=== PATIENT | female | born 1945 | race Caucasian/White ===

== ENCOUNTER 2023-06-03 13:21 | Emergency (ER) | payer MEDICARE ==
[2023-06-03 13:53] VITALS: TEMP 97
[2023-06-03] MEDS ORDERED: Sodium Chloride 0.9% 1000 ML 1,000 ML ONE ×2 (14:22→15:39)
[2023-06-03 14:24] LABS: Absolute Neutrophil Ct (ANC) 10.75 x10^3/uL (1.4-6.9); BASOPHIL % 0.2 % (0.0-0.4); Basophil (Absolute #) 0.02 x10^3/uL (0-0.4); Eosinophil % 0.5 % (0.00-5.0); Eosinophil (Absolute #) 0.06 x10^3/uL (0-0.5); Hematocrit 47.3 % (35-47); Hemoglobin 15.7 g/dL (12.0-16.0); IMMATURE GRAN # 0.04 x10^3u/L (0.00-0.03); IMMATURE GRAN % 0.3 % (0.00-0.4); Lymphocyte (Absolute #) 0.29 x10^3/uL (1.0-4.6); Lymphocytes % 2.5 % (24.0-44.0); Mean Cell Volume 92.7 fL (78-100); Mean Corpuscular Hemoglobin 30.8 pg (26-32); Mean Corpuscular Hgb Concent. 33.2 g/dL (32-36); Mean Platelet Volume 11.5 fL (7.5-11.0); Monocyte (Absolute #) 0.45 x10^3/uL (0.0-1.3); Monocytes % 3.9 % (0.0-12.0); Neutrophil % 92.6 % (36.0-66.0); Platelet Count 269 x10^3/uL (150-450); Red Cell Distribution Width 11.9 % (11.5-14.0); White Blood Count 11.6 x10^3/uL (4.0-10.5)
[2023-06-03] MEDS: Sodium Chloride 0.9% 1000 ML 1,000 ML IV STA ×2 (14:28→15:39)
[2023-06-03 14:32] LABS: Slide Review 1 YES
[2023-06-03] MEDS ORDERED: Zofran 4 MG/2 ML VIAL ONE (14:33)
[2023-06-03] MEDS: Zofran 4 MG/2 ML VIAL IV ONE (14:36)
[2023-06-03 15:15] LABS: ALBUMIN 3.6 g/dL (3.5-5.0); ALKALINE PHOSPHATASE 92 U/L (38-126); AMYLASE 71 U/L (30-110); ANION GAP 12.9 MEQ/L (5-15); BLOOD UREA NITROGEN 25 mg/dL (7-17); CHLORIDE 108 mmol/L (98-107); Calcium 9.3 mg/dL (8.4-10.2); Carbon Dioxide 21 mmol/L (22-30); Creatinine 1 0.74 mg/dL (0.52-1.04); EST GLOMERULAR FILTRATION RATE 81.7 ML/MIN; Glucose 134 mg/dL (74-106); LIPASE 62 U/L (23-300); Potassium 4.1 mmol/L (3.5-5.1); SGOT/AST 33 U/L (14-36); SGPT/ALT 20 U/L (0-35); SODIUM 137 mmol/L (135-145); TROPONIN < 0.012 ng/mL (0.000-0.033); Total Protein 6.3 g/dL (6.3-8.2)
[2023-06-03 15:43] VITALS: O2SAT 99
--- NOTE | 2023-06-03 16:24 | ERPHSYRPT ---
- History of Present Illness Time Seen by Provider: 06/03/23 13:55 Historian: patient Exam Limitations: no limitations Patient Subjective Stated Complaint: pt here for weakness that started this morning and pain to epigartic area she vomited a couple times and states the p ain feels better. no fever or cough, Triage Nursing Assessment: pt alert, and oreinted, arrived per wc, resp easy, skin w/d/p, no edema noted,moves all ext well, assist on one to get from wc to bed. abd flat and soft, Physician History: Patient is an 78-year-old white female who awoke this morning with vomiting and diarrhea. She vomited 3 times and then started with diarrhea she was complaining of epigastric pain which went through to the back sharp achy pain rated 6 of 10. She has diarrhea and near syncope at 1 pointShe is generally very healthy for an 78-year-old. Timing/Duration: today Quality: cramping, stabbing Abdominal Pain Onset Location: epigastric Pain Radiation: back Severity of Pain-Max: moderate Severity of Pain-Current: moderate Associated Symptoms: back, loss of appetite, nausea, vomiting Previous symptoms: no prior history Allergies/Adverse Reactions: codeine Allergy (Verified 06/03/23 13:49) Home Medications: Desvenlafaxine Succinate [Pristiq ER] 50 mg PO DAILY 05/24/15 [History] Lactobacillus Combo No.10 [Probiotic] 1 each PO DAILY 05/24/15 [History] Multivit-Minerals/Folic Acid [Multi Vitamin Jelly] 200 mcg PO DAILY 06/03/23 [History] Hx Tetanus, Diphtheria Vaccination/Date Given: No Hx Influenza Vaccination/Date Given: Yes Hx Pneumococcal Vaccination/Date Given: Yes Immunizations Up to Date: Yes Travel Risk - International Travel Have you traveled outside of the country in past 3 weeks: No - Emerging Infectious Disease Are you exhibiting symptoms associated with any current EIDs: Yes Symptoms: Vomitting - Review of Systems Constitutional: No Fever, No Chills Eyes: No Symptoms Ears, Nose, & Throat: No Symptoms Respiratory: No Cough, No Dyspnea Cardiac: No Chest Pain, No Edema, No Syncope Abdominal/Gastrointestinal: Abdominal Pain, Nausea, Vomiting, Diarrhea Genitourinary Symptoms: No Dysuria Musculoskeletal: No Back Pain, No Neck Pain Skin: No Rash Neurological: No Dizziness, No Focal Weakness, No Sensory Changes Psychological: No Symptoms Endocrine: No Symptoms All Other Systems: Reviewed and Negative - Past Medical History Pertinent Past Medical History: Yes Neurological History: No Pertinent History ENT History: No Pertinent History Cardiac History: No Pertinent History Respiratory History: Other Endocrine Medical History: No Pertinent History Musculoskeletal History: No Pertinent History GI Medical History: No Pertinent History History: No Pertinent History Psycho-Social History: Depression Female Reproductive Disorders: Breast Cancer Other Medical History: history of histoplasmosis, hx breast ca - Past Surgical History Past Surgical History: Yes Neuro Surgical History: No Pertinent History Cardiac: No Pertinent History Respiratory: No Pertinent History Gastrointestinal: Appendectomy Genitourinary: No Pertinent History Musculoskeletal: No Pertinent History Female Surgical History: Hysterectomy, Lumpectomy Other Surgical History: lt breast surgery,tonsillectomy - Social History Smoking Status: Former smoker Exposure to second hand smoke: No Drug Use: none - Nursing Vital Signs Nursing Vital Signs: Initial Vital Signs Pulse Rate 84 06/03/23 13:49 Respiratory Rate 17 06/03/23 13:49 Blood Pressure 94/50 06/03/23 13:49 O2 Sat by Pulse Oximetry 100 06/03/23 13:49 Pain Scale Pain Intensity 3 - Physical Exam General Appearance: mild distress, alert Eye Exam: PERRL/EOMI, eyes nml inspection Ears, Nose, Throat Exam: normal ENT inspection, pharynx normal, moist mucous m embranes Neck Exam: normal inspection, non-tender, supple, full range of motion Respiratory Exam: normal breath sounds, lungs clear, No respiratory distress Cardiovascular Exam: regular rate/rhythm, normal heart sounds Gastrointestinal/Abdomen Exam: soft, tenderness (Epigastrium), guarding, No mass, No rebound Back Exam: normal inspection, normal range of motion, No CVA tenderness, No vertebral tenderness Extremity Exam: normal inspection, normal range of motion, pelvis stable Neurologic Exam: alert, oriented x 3, cooperative, normal mood/affect, nml cerebellar function, sensation nml, No motor deficits Skin Exam: normal color, warm, dry SpO2 Interpretation: normal SpO2: 99 O2 Delivery: Room Air - Course Nursing assessment & vital signs reviewed: Yes EKG Interpreted by Me: RATE (83), Sinus Rhythm, NORMAL AXIS, Non-specific ST Changes - Radiology Exams Chest X-ray Interpretation: Reviewed by me - CT Exams Abdomen/Pelvis CT Interpretation: Other (Findings suggestive of enteritisOtherwise stable) Ordered Tests: Active Orders 24 hr Category Date Time Status EKG-ER Only STAT Care 06/03/23 14:06 Active IV Insertion STAT Care 06/03/23 14:06 Active ABDOMEN AND PELVIS W CONTRAST [CT] Stat Exams 06/03/23 14:06 Completed CHEST 1 VIEW (PORTABLE) Stat Exams 06/03/23 14:06 Completed AMYLASE Stat Lab 06/03/23 14:05 Completed CBC W DIFF Stat Lab 06/03/23 14:05 Completed CMP Stat Lab 06/03/23 14:05 Completed LIPASE Stat Lab 06/03/23 14:05 Completed Lactic Acid Stat Lab 06/03/23 14:10 Completed Lactic Acid Stat Lab 06/03/23 16:19 Received TROPONIN Q4H Lab 06/03/23 14:05 Completed TROPONIN Q4H Lab 06/03/23 18:15 Ordered TROPONIN Q4H Lab 06/03/23 22:15 Ordered UA W/RFX UR CULTURE Stat Lab 06/03/23 14:06 Ordered Medication Summary Discontinued Medications Generic Name Dose Route Start Last Admin Trade Name Freq PRN Reason Stop Dose Admin Sodium Chloride 1,000 mls @ 999 mls/hr 06/03/23 14:06 06/03/23 14:28 Sodium Chloride 0.9% 1000 Ml IV 06/03/23 15:06 999 mls/hr .Q1H1M STA Administration Sodium Chloride Confirm 06/03/23 14:22 Sodium Chloride 0.9% 1000 Ml Administered 06/03/23 14:23 Dose 1,000 mls @ ud .ROUTE .STK-MED ONE Sodium Chloride 1,000 mls @ 999 mls/hr 06/03/23 15:37 06/03/23 15:39 Sodium Chloride 0.9% 1000 Ml IV 06/03/23 16:37 999 mls/hr .Q1H1M STA Administration Sodium Chloride Confirm 06/03/23 15:39 Sodium Chloride 0.9% 1000 Ml Administered 06/03/23 15:40 Dose 1,000 mls @ ud .ROUTE .STK-MED ONE Ondansetron HCl 4 mg 06/03/23 14:18 06/03/23 14:36 Ondansetron Hcl 4 Mg/2 Ml Vial IV 06/03/23 14:19 4 mg STAT ONE Administration Ondansetron HCl Confirm 06/03/23 14:33 Ondansetron Hcl 4 Mg/2 Ml Vial Administered 06/03/23 14:34 Dose 4 mg .ROUTE .STK-MED ONE Lab/Rad Data: Laboratory Result Diagrams 06/03/23 14:05 06/03/23 14:05 Laboratory Results 06/03/23 06/03/23 06/03/23 Range/Units 14:10 14:05 14:05 WBC 11.6 H (4.0-10.5) x10^3/uL RBC 5.10 (4.1-5.4) x10^6/uL Hgb 15.7 (12.0-16.0) g/dL Hct 47.3 H (35-47) % MCV 92.7 (78-100) fL MCH 30.8 (26-32) pg MCHC 33.2 (32-36) g/dL RDW 11.9 (11.5-14.0) % Plt Count 269 (150-450) x10^3/uL MPV 11.5 H (7.5-11.0) fL Gran % 92.6 H (36.0-66.0) % Immature Gran % (Auto) 0.3 (0.00-0.4) % Nucleat RBC Rel Count 0.0 (0.00-0.1) % Eos # (Auto) 0.06 (0-0.5) x10^3/uL Immature Gran # (Auto) 0.04 H (0.00-0.03) x10^3u/L Absolute Lymphs (auto) 0.29 L (1.0-4.6) x10^3/uL Absolute Monos (auto) 0.45 (0.0-1.3) x10^3/uL Absolute Nucleated RBC 0.00 (0.00-0.01) x10^3u/L Lymphocytes % 2.5 L (24.0-44.0) % Monocytes % 3.9 (0.0-12.0) % Eosinophils % 0.5 (0.00-5.0) % Basophils % 0.2 (0.0-0.4) % Absolute Granulocytes 10.75 H (1.4-6.9) x10^3/uL Basophils # 0.02 (0-0.4) x10^3/uL Sodium 137 (135-145) mmol/L Potassium 4.1 (3.5-5.1) mmol/L Chloride 108 H (98-107) mmol/L Carbon Dioxide 21 L (22-30) mmol/L Anion Gap 12.9 (5-15) MEQ/L BUN 25 H (7-17) mg/dL Creatinine 0.74 (0.52-1.04) mg/dL Estimated GFR 81.7 ML/MIN Glucose 134 H (74-106) mg/dL Lactic Acid 2.1 H (0.4-2.0) Calcium 9.3 (8.4-10.2) mg/dL Total Bilirubin 0.80 (0.2-1.3) mg/dL AST 33 (14-36) U/L ALT 20 (0-35) U/L Alkaline Phosphatase 92 (38-126) U/L Troponin I < 0.012 (0.000-0.033) ng/mL Serum Total Protein 6.3 (6.3-8.2) g/dL Albumin 3.6 (3.5-5.0) g/dL Amylase 71 (30-110) U/L Lipase 62 (23-300) U/L Slides for Path Review YES - Progress Progress: improved Medical Desision Making - Independent Historian Additional History obtained from: Spouse - Diagnostic Testing Diagnostic test were ordered, analyzed, and reviewed by me: Yes Radiological Interpretation: Reviewed by me - Risk of complications Low Risk: Low risk of morbidity from additional dx testing or treatment - Departure Departure Disposition: Home Clinical Impression: Gastroenteritis Condition: Stable Critical Care Time: No Referrals: SIRIA HICKS DO [Primary Care Provider] - Follow up/PCP as directed Instructions: Viral Gastroenteritis, Adult (DC) Prescriptions: Ondansetron ODT 4 MG [Zofran Odt 4 mg] 4 mg PO Q6H PRN PRN #10 tablet PRN Reason: Vomiting Dicyclomine HCl 20 mg [Bentyl 20 mg] 20 mg PO Q6H 5 Days #20 tablet
--- NOTE | 2023-06-03 16:32 | XRAY ---
Indication: Pain, vomiting, diarrhea. Multiple contiguous axial images obtained through the abdomen and pelvis using 80 cc Isovue 370 contrast. Impression: None Lung bases demonstrates minimal dependent atelectasis. No filtrate or effusion. Heart not enlarged. Small hiatal hernia. Noncontrasted stomach and bowel loops appear nonobstructed. Mild diffuse fluid distended small bowel loops with jejunal bowel wall thickening/enhancement favoring enteritis. Appendectomy and hysterectomy reported. No free fluid/air. Right lobe liver demonstrates 1.2 cm cyst adjacent to gallbladder. Incidental tiny splenic calcified granulomas. Remaining liver, gallbladder, pancreas, spleen, adrenal glands, kidneys, ureters, and bladder are unremarkable. Minimal scattered aortoiliac calcifications. No AAA or pathologic retroperitoneal lymphadenopathy. Osseous structures intact. No ventral or inguinal hernias. Impression: 1. CT findings favoring enteritis. 2. Incidental small hiatal hernia, hepatic cyst, minimal arteriosclerotic disease, and old granulomatous disease.
--- NOTE | 2023-06-03 16:33 | XRAY ---
Indication: Pain. Comparison: May 26, 2013 Portable chest again demonstrates normal heart and lungs. 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 Impression: Continued nonacute chest with chronic features.
[2023-06-03 17:12] VITALS: BP 133/71; PULSE 91; RESP 13
[2023-06-03 17:20] LABS: ADD URINE CULTURE? YES (NO); Appearance Clear (Clear); Bacteria Many /HPF (None Seen); Bilirubin Negative (Negative); Blood Trace (Negative); Epithelial Cells None Seen /HPF (None Seen); Glucose, Urine Negative (Negative); Hyaline Casts NONE SEEN /LPF (0-2); Ketones Negative (Negative); Leukocyte Esterase Small (Negative); Nitrite Positive (Negative); Protein,Urine Dip Negative (Negative); Specific Gravity >=1.030 (1.005-1.030); Urobilinogen 0.2 mg/dL (0.2)
== END 2023-06-03 17:24 | disposition home or self-care (01) ==
LOC: ED 13:21
DX: K52.9 Noninfective gastroenteritis and colitis, unspecified (principal); R11.2 Nausea with vomiting, unspecified; R10.13 Epigastric pain; Z79.899 Other long term (current) drug therapy
CPT/HCPCS: 36000; 36415; 71045; 74177; 80053; 81001; 82150; 83605; 83690; 84484; 85025; 87077; 87086; 87186; 93005; 96360; 96361; 96374; 99284; J2405